=== PATIENT | male | born 1980 | race Caucasian/White ===

== ENCOUNTER 2017-04-25 18:34 | Emergency (ER) | payer OTHER ==
[2017-04-25 19:03] VITALS: BP 135/84
[2017-04-25] MEDS ORDERED: DIPHTH,PERTUSS(ACELL),TET VAC 0.5 ML VIAL IM ONE ×2 (19:38→20:54)
--- NOTE | 2017-04-25 20:02 | ERNOTE ---
Upper Extremity HPI - Narrative Date of Service: 04/25/17 - General Extremities Pain Location: forearm: right Time Seen by Provider: 04/25/17 19:33 Source: patient Exam Limitations: no limitations - Immun/Allergies/Home Medications Immunizations: IMMUNIZATION HX Immunizations Up to Date Yes History of Influenza Vaccine Yes Hx Pneumococcal Vaccination No Allergies/Adverse Reactions: Allergies Allergy/AdvReac Type Severity Reaction Status Date / Time No Known Allergies Allergy Verified 04/25/17 19:03 Home Medications: HOME MEDICATIONS Cephalexin Monohydrate [Keflex] 500 mg PO QID #40 cap 04/25/17 [Last Taken Unknown] - History of Present Illness Narrative: Pt. comes in with c/o R inner forearm laceration after a banding gun broke and a band of metal cut his arm. Pt. stats that this occurred at work an hour ago. Pt. denies any SOB, CP, NVD, fever, numbness, tingling, ot lack of motion. Occurred: just prior to arrival Location of Incident: work Severity: moderate Method of Injury: Reports: direct blow Loss of Consciousness: Reports: no loss of consciousness Modifying Factors - (Worsens): Reports: other - pressure Associated Symptoms: Denies: tingling, weakness, numbness distally, loss of feeling, loss of power (rt arm), loss of power (lt arm) Other Injuries: Reports: none Prior Treament: Reports: other - unknown last tetanus booster Review of Systems - Review of Systems Constitutional: Present: no symptoms reported. Absent: fever, chills, weakness , fatigue, malaise EYE: Present: no symptoms reported ENT: Present: no symptoms reported Respiratory: Present: no symptoms reported. Absent: shortness of breath, cough , wheezing Cardiology: Present: no symptoms reported. Absent: chest pain, palpitations, edema Gastrointestinal/Abdominal: Present: no symptoms reported. Absent: nausea, vomiting, diarrhea Genitourinary: Present: no symptoms reported Musculoskeletal: Present: no symptoms reported. Absent: back pain, neck pain, joint pain Skin: Present: other - laceration R forearm Neurological: Present: no symptoms reported. Absent: headache, dizziness/light- headedness, numbness, tingling All Other Systems: All systems neg except as marked - Patient's Past Medical History Patient History - Medical: No pertinent hx Patient History - Cardiac/Respiratory: No pertinent hx Patient History - Cancer: No Hx of Cancer Patient History - Surgical Procedures: Back Surgery Patient History - Other: None - Social History Living Situations: home Psych History: No pertinent hx Smoking Status: Current every day smoker Patient requests Smoking Cessation Consult: Yes Initiate information on Smoking Cessation: No Alcohol Use: none Drug Use: none - Immunizations Immunizations Up to Date: Yes Hx Pneumococcal Vaccination: No History of Influenza Vaccine: Yes Physical Exam - Physical Exam General Appearance: Present: wd/wn, alert, no apparent distress Head Exam: Present: normal inspection, no evidence of injury Eye Exam: Normal inspection: bilateral, PERRL: bilateral, EOMI: bilateral Ears, Nose, Throat: Present: normal ENT inspection, normal pharynx Neck: Present: normal inspection, nontender, supple, full range of motion. Absent: lymphadenopathy (R), lymphadenopathy (L) Respiratory: Present: no respiratory distress, normal breath sounds, no accessory muscle use, chest nontender, lungs clear Cardiovascular/Chest: Present: regular rate, rhythm, no murmur, normal peripheral pulses Gastrointestinal/Abdominal: Present: normal bowel sounds, nontender Back Exam: Present: normal inspection, normal range of motion, no CVA tenderness Extremity Exam: Present: normal range of motion, no edema, other - laceation 10cm in length 7cm partial thickness closed and 3cm full thickness open, tendon vizualized and is intact. Neurological Exam: Present: alert, oriented, normal mood/affect, no motor/ sensory deficits Skin Exam: Present: normal color, warm/dry, other - see description of laceration above. Absent: pallor, skin rash ED Progress - Vital Signs Patient's Vital Signs:: I have reviewed the patient's vital signs. Vital Signs: Vital Signs 04/25/17 18:58 Temperature 36.7 C Pulse Rate 95 Respiratory 18 Rate Blood Pressure 135/84 O2 Sat by Pulse 97 Oximetry - Progress/Reassessment Chief Complaint: Upper Extremity Injury/Problem Procedures Right Distal Volar Arm Anesthesia: 1% Lidocaine I & D Prep: betadine prep, sterile drapes applied, sterile dressing applied Wound's Depth/Shape: into subcutaneous, linear Wound Explored: clean Wound Intervention: irrigated w/saline, debrided minimal Distal NVT: neuro/vasc intact, no tendon injury Wound Repaired With: sutures Suture Size/Type: 4-0, silk Number of Sutures: 8 Layer Closure: Simple Estimated blood loss (ml): 0 Wound Dressing: sterile dressing applied Complications: Pt meena procedure well Departure Clinical Impression: Laceration - Departure Disposition: Home self-care Condition: Good Instructions: Laceration Care, Adult, [id number] Additional Instructions: Please follow up with work comp clinic in one week Referrals: Veronica Singletary, PAC [[facility]] - Prescriptions: Cephalexin Monohydrate [Keflex] 500 mg PO QID #40 cap
[2017-04-25] MEDS ORDERED: LIDOCAINE HCL 20 ML VIAL ONE (20:54)
[2017-04-25] MEDS ORDERED: CEPHALEXIN MONOHYDRATE 250 MG CAPSULE PO ONE (21:18)
[2017-04-25] MEDS ORDERED: CEPHALEXIN MONOHYDRATE 250 MG CAPSULE ONE (21:19)
== END 2017-04-25 21:27 | disposition home or self-care (01) ==
LOC: ER 18:34
PROC: 0HQBXZZ Repair Right Upper Arm Skin, External Approach (ICD-10-PCS; principal; 2017-04-25)
PROC: 3E0234Z Introduction of Serum, Toxoid and Vaccine into Muscle, Percutaneous Approach (ICD-10-PCS; 2017-04-25)
DX: S51.811A Laceration without foreign body of right forearm, initial encounter (principal); W31.89XA Contact with other specified machinery, initial encounter; Y93.89 Activity, other specified; Y92.69 Other specified industrial and construction area as the place of occurrence of the external cause